=== PATIENT | male | born 1960 | race Caucasian/White ===

== ENCOUNTER 2016-07-28 07:25 | Emergency (ER) | payer BC, OTHER ==
[~2016-07-28] VITALS: Ht 165.1 cm; Wt 108.9 kg
[~2016-07-28 07:25] MED LIST: /ATOR40TA OR; BENI20TA11 PO; CLAR500T OR; IBUP400T PO; MULTIVIT PO; PRIL40CA OR; TRAM50TA2 OR; ULTRTA PO; VENTAER IN; VOLT1GEL EX; [UNRECOGNIZED DRUG - OTHER] PO
[2016-07-28] MEDS ORDERED: BENI5TAB PO (07:33)
[2016-07-28 09:24] LABS: BASO % 0.5 % (0.0-1.0); EOS # 0.1 K/mm3 (0.0-0.50); EOS % 2.1 % (0.0-3.0); LARGE UNSTAINED CELL # 0.2 K/mm3 (0.0-0.4); LARGE UNSTAINED CELL % 2.6 % (0.0-4.0); LYMPH # 0.9 K/mm3 (1.5-4.5); LYMPH % 13.7 % (24.0-44.0); MEAN CORPUSCULAR HEMOGLOBIN 31.8 pg (27.0-33.0); MEAN CORPUSCULAR HGB CONC 34.3 g/dl (32.0-36.5); MEAN CORPUSCULAR VOLUME 92.5 fl (80.0-96.0); MONO # 0.4 K/mm3 (0.0-0.8); MONO % 5.4 % (0.0-5.0); NEUTROPHILS % 75.6 % (36.0-66.0); PLATELET COUNT, AUTOMATED 206 k/mm3 (150-450); RED CELL DISTRIBUTION WIDTH 12.5 % (11.5-14.5); WHITE BLOOD COUNT 6.6 K/mm3 (4.0-10.0)
[2016-07-28] MEDS ORDERED: GASTROGRAFIN SOLUTION 30ML (Q9963) As Ordered ONE (09:42)
[2016-07-28 09:56] LABS: ALBUMIN 3.5 GM/DL (3.2-5.2); ALBUMIN/GLOBULIN RATIO 0.97 (1.00-1.93); ALKALINE PHOSPHATASE 56 U/L (45-117); ALT/SGPT 34 U/L (12-78); ANION GAP 6 MEQ/L (8-16); AST/SGOT 24 U/L (15-37); BILIRUBIN,DIRECT 0.2 MG/DL (0.0-0.2); BLOOD UREA NITROGEN 18 MG/DL (7-18); CARBON DIOXIDE LEVEL 34 MEQ/L (21-32); CHLORIDE LEVEL 99 MEQ/L (98-107); CREATININE FOR GFR 1.05 MG/DL (0.70-1.30); GLOMERULAR FILTRATION RATE > 60.0 (>56); GLUCOSE, FASTING 101 MG/DL (70-105); POTASSIUM SERUM 3.1 MEQ/L (3.5-5.1); SODIUM LEVEL 139 MEQ/L (136-145); TOTAL PROTEIN 7.1 GM/DL (6.4-8.2)
[2016-07-28] MEDS ORDERED: GASTROGRAFIN SOLUTION 30ML (Q9963) PO ONE (10:00)
[2016-07-28] MEDS ORDERED: ISOVUE-370 76% 100ML VIAL (Q9967) As Ordered ONE (11:11)
[2016-07-28] MEDS ORDERED: POTASSIUM CHLORIDE 10 MEQ SR TABLET PO ONE (11:15)
--- NOTE | 2016-07-28 11:56 | REP ---
CT ABDOMEN AND PELVIS WITH IV CONTRAST AND ORAL CONTRAST: TECHNIQUE: Axial contrast enhanced images from the lung bases to the pubic symphysis using 100 mL Isovue 370 intravenous contrast material with multiplanar reformations. Visualized lung bases demonstrate no infiltrate. Liver demonstrates a hypodensity in the left lobe which measures approximately 1 cm in diameter. This probably represents a cyst. Patient has had a prior cholecystectomy. The spleen, adrenals, pancreas, and kidneys are unremarkable. There is no abnormal aortic aneurysm with mild atherosclerotic calcifications noted. There is on adenopathy. There is on free air or free fluid. The appendix is normal. However, there is sigmoid diverticulitis present, with multiple innumerable sigmoid diverticula associated with thickening and surrounding streaky inflammatory change. Urinary bladder is mildly distended and grossly unremarkable. There are small bilateral inguinal hernias containing fat. IMPRESSION: Sigmoid diverticulitis. No evidence of free air, free fluid, or abscess. Small bilateral inguinal hernias containing fat. Signed by Jonnathan Garza MD 07/28/2016 12:35 P
[2016-07-28 12:53] VITALS: BP 143/83
[2016-07-28] MEDS ORDERED: FLAG500T PO (13:14)
[2016-07-28] MEDS ORDERED: CIPR500T89 PO (13:14)
[2016-07-28] MEDS ORDERED: CIPROFLOXACIN 500 MG TAB PO ONE (13:15)
[2016-07-28] MEDS ORDERED: metroNIDAZOLE (FLAGYL) 500 MG TAB PO ONE (13:15)
== END 2016-07-28 13:31 | disposition home or self-care (01) ==
LOC: M ED 08:07
DX: K57.32 Diverticulitis of large intestine without perforation or abscess without bleeding (principal); K40.20 Bilateral inguinal hernia, without obstruction or gangrene, not specified as recurrent; I10 Essential (primary) hypertension; E78.5 Hyperlipidemia, unspecified; K21.9 Gastro-esophageal reflux disease without esophagitis; Z87.891 Personal history of nicotine dependence
CPT/HCPCS: 36415; 74177; 80048; 80076; 83690; 85025; 99283; Q9963; Q9967

== ENCOUNTER 2016-12-05 09:14 | Outpatient (CLI) | payer BC, OTHER ==
[~2016-12-05] VITALS: Ht 167.6 cm; Wt 108.9 kg
[~2016-12-05 09:14] MED LIST changes: +BENI5TAB3 PO; +CIPR-249 PO; +FLAG500T PO; +MULT1TAB10 PO
[2016-12-05] MEDS ORDERED: NS 1,000 ML IV ONE (10:00)
[2016-12-05] MEDS ORDERED: LIDOCAINE 2% INJ 100 MG/5 ML SDV (FOR ANES.) As Ordered ONE (10:40)
[2016-12-05] MEDS ORDERED: PROPOFOL 200 MG/20 ML VIAL As Ordered ONE (10:40)
--- NOTE | 2016-12-05 10:41 | ROOR ---
Patient Name: Shamar Barney Procedure Date: 12/05/2016 10:29 AM Date of : 1960 Age: 56 Room: [facility] Gender: Male Note Status: Finalized Procedure: Upper GI endoscopy Indications: Epigastric abdominal pain Providers: Boubacar HARRIS MD Referring MD: ALBER LEYVA Requesting Provider: Medicines: Monitored Anesthesia Care Complications: No immediate complications. Procedure: Pre-Anesthesia Assessment: - The heart rate, respiratory rate, oxygen saturations, blood pressure, adequacy of pulmonary ventilation, and response to care were monitored throughout the procedure. The Endoscope was introduced through the mouth, and advanced to the second part of duodenum. The upper GI endoscopy was accomplished without difficulty. The patient tolerated the procedure well. Findings: The esophagus was normal. The stomach was normal. (large compliant stomach) The examined duodenum was normal. Impression: - Normal esophagus. - Normal stomach. - Normal examined duodenum. - No specimens collected. Recommendation: - Observe patient's clinical course. Boubacar Harris MD Boubacar HARRIS MD 12/05/2016 10:40:48 AM This report has been signed electronically. Number of Addenda: 0 Note Initiated On: 12/05/2016 10:29 AM Estimated Blood Loss: Estimated blood loss: none.
--- NOTE | 2016-12-05 10:57 | ROOR ---
Patient Name: Shamar Barney Procedure Date: 12/05/2016 10:30 AM Date of : 1960 Age: 56 Room: [facility] Gender: Male Note Status: Finalized Procedure: Colonoscopy Indications: Abnormal CT of the GI tract Providers: Boubacar HARRIS MD Referring MD: ALBER LEYVA Requesting Provider: Medicines: Monitored Anesthesia Care Complications: No immediate complications. Procedure: Pre-Anesthesia Assessment: - The heart rate, respiratory rate, oxygen saturations, blood pressure, adequacy of pulmonary ventilation, and response to care were monitored throughout the procedure. The Colonoscope was introduced through the anus and advanced to the terminal ileum, with identification of the appendiceal orifice and IC valve. The colonoscopy was performed without difficulty. The patient tolerated the procedure well. The quality of the bowel preparation was good. Findings: Hemorrhoids were found on perianal exam. (Exam: Complete, Prep: Good or Excellent.) A 4 mm polyp was found in the sigmoid colon. The polyp was sessile. The polyp was removed with a cold snare. Resection and retrieval were complete. Multiple small-mouthed diverticula were found in the sigmoid colon and descending colon. External and internal hemorrhoids were found during retroflexion. The hemorrhoids were moderate. Impression: - (Exam: Complete, Prep: Good or Excellent.) - Moderate external and internal hemorrhoids are seen on perianal exam. - One 4 mm polyp in the sigmoid colon, removed with a cold snare. Resected and retrieved. - Mild diverticulosis in the sigmoid colon and in the descending colon. Recommendation: - Repeat colonoscopy in 5 years for surveillance. Boubacar Harris MD Boubacar HARRIS MD 12/05/2016 10:57:16 AM This report has been signed electronically. Number of Addenda: 0 Note Initiated On: 12/05/2016 10:30 AM Estimated Blood Loss: Estimated blood loss: none.
[2016-12-05 11:25] VITALS: BP 146/89
== END 2016-12-05 11:34 | disposition home or self-care (01) ==
LOC: M OPP 09:14
PROVIDERS: ATTEND Internal Medicine Gastroenterology
DX: R93.5 Abnormal findings on diagnostic imaging of other abdominal regions, including retroperitoneum (principal); K63.5 Polyp of colon; K57.30 Diverticulosis of large intestine without perforation or abscess without bleeding; K64.4 Residual hemorrhoidal skin tags; K64.8 Other hemorrhoids; R10.13 Epigastric pain; K25.9 Gastric ulcer, unspecified as acute or chronic, without hemorrhage or perforation; I10 Essential (primary) hypertension; E78.5 Hyperlipidemia, unspecified; K57.32 Diverticulitis of large intestine without perforation or abscess without bleeding; R12 Heartburn; M19.90 Unspecified osteoarthritis, unspecified site; M54.2 Cervicalgia; R06.83 Snoring; G47.30 Sleep apnea, unspecified; Z87.891 Personal history of nicotine dependence; Z88.0 Allergy status to penicillin; Z79.899 Other long term (current) drug therapy

== ENCOUNTER → 2018-04-12 | Outpatient (CLI) | payer BC, OTHER ==
[~2018-04-12] MED LIST changes: +ACET1TAB55 PO; +CHLO25TA PO; +SULF1TAB93 PO
[2018-04-12 14:37] LABS: BLOOD UREA NITROGEN 18 MG/DL (7-18); CREATININE FOR GFR 1.07 MG/DL (0.70-1.30); GLOMERULAR FILTRATION RATE > 60.0 (>56); IRON (FE) 84 UG/DL (65-175); PERCENT SATURATION 27.4 % (19.7-50.0); TOTAL IRON BINDING CAPACITY 307 UG/DL (250-450)
[2018-04-12 14:56] LABS: HEPATITIS B SURFACE ANTIGEN NEGATIVE (NEGATIVE)
[2018-04-12 15:23] LABS: HEPATITIS C VIRUS ABY INDEX < 0.0 INDEX (<0.8)
[2018-04-12 15:24] LABS: HEPATITIS B CORE ANTIBODY IGM NEGATIVE (NEGATIVE)
[2018-04-12 15:26] LABS: HEPATITIS A ANTIBODY IGM NEGATIVE (NEGATIVE)
[2018-04-15 00:07] LABS: ANCA-ATYPICAL <1:20 titer (Neg:<1:20); ANTI-MITOCHONDRIAL ANTIBODY <20.0 Units (0.0-20.0); ANTINUCLEAR ANTIBODIES DIRECT Negative (Negative); CERULOPLASMIN 23.8 mg/dL (16.0-31.0); CYTOPLASMIC NEUTROP AB ANCA-C <1:20 titer (Neg:<1:20); PERINUCLEAR AB ANCA-P <1:20 titer (Neg:<1:20)
== END ==
LOC: M LAB 13:00
PROVIDERS: ATTEND Internal Medicine Gastroenterology
DX: K75.81 Nonalcoholic steatohepatitis (NASH) (principal); R93.3 Abnormal findings on diagnostic imaging of other parts of digestive tract

== ENCOUNTER → 2018-04-23 | Outpatient (CLI) | payer BC, OTHER ==
[~2018-04-23] MED LIST changes: +PROHANCE 279.3MG/ML 15ML VIAL (A9576) As Ordered ONE; +PROHANCE 279.3MG/ML 5ML VIAL (A9576) As Ordered ONE
--- NOTE | 2018-04-23 14:37 | REP ---
MRI ABDOMEN AND LIVER WITHOUT AND WITH IV GADOLINIUM: HISTORY: Hepatic cyst noted left lobe on March 15, 2018 ultrasound from [facility]. Common bile duct measures 12 mm post cholecystectomy. TECHNIQUE: Axial and coronal T1- and T2-weighted scans were obtained. Sequences include spin-echo, fast spin echo, gradient echo, in- and [id number], and dynamically acquired sequential post gadolinium enhanced images. The gadolinium enhancement dose is 20 mL of intravenous ProHance. MRI FINDINGS: There are three identifiable hepatic cysts. The cyst seen sonographically is noted in the central portion of the left lobe measuring 1.3 cm in greatest diameter by MRI. There is a peripheral subcapsular cyst 1.2 cm in diameter in the left lobe. There is a tiny 2 mm cyst inferiorly in the posterior segment of the right lobe. The two left lobe cysts are visible in retrospect on the CT study and are felt to be essentially unchanged. No other focal liver lesion is seen on precontrast T2-weighted scans. No abnormal gadolinium enhancement is seen with any of these lesions. No other focal liver lesion is seen on the other T1 or T2-weighted sequences. No pancreatic or splenic lesion is seen. There is an accessory splenule noted as previously visualized. The common bile duct is noted to be 12 mm in diameter as seen on sonography. This is in the upper range of normal post cholecystectomy. There is no evidence of choledocholithiasis. IMPRESSION: Small cysts in the liver. Post cholecystectomy. Borderline CBD 12 mm. This is unchanged from CT study July 28, 2016. Otherwise no significant finding. Electronically Signed by Nelson Gomez MD 04/23/2018 02:43 P
== END ==
LOC: M RAD 10:08
PROVIDERS: ATTEND Internal Medicine Gastroenterology
DX: R93.3 Abnormal findings on diagnostic imaging of other parts of digestive tract (principal); K76.89 Other specified diseases of liver; Z90.49 Acquired absence of other specified parts of digestive tract
CPT/HCPCS: 74183; A9576

== ENCOUNTER → 2020-03-08 | Outpatient (CLI) | payer BC, OTHER ==
[~2020-03-08] MED LIST changes: -/ATOR40TA OR; +LIPI1TAB2 OR; -PROHANCE 279.3MG/ML 15ML VIAL (A9576) As Ordered ONE; -PROHANCE 279.3MG/ML 5ML VIAL (A9576) As Ordered ONE
== END ==
LOC: M LABSMTC 13:30
PROVIDERS: ATTEND Orthopaedic Surgery Orthopaedic Surgery of the Spine
DX: Z20.822 Contact with and (suspected) exposure to COVID-19 (principal)

== ENCOUNTER → 2020-03-09 | Outpatient (CLI) | payer BC, OTHER ==
[2020-03-09 15:33] LABS: BASO % 0.5 % (0.0-1.0); EOS # 0.1 10^3/uL (0.0-0.5); EOS % 1.3 % (0.0-3.0); HEMATOCRIT 45.9 % (42.0-52.0); LYMPH # 1.4 10^3/uL (1.5-5.0); LYMPH % 17.2 % (24.0-44.0); MEAN CORPUSCULAR HEMOGLOBIN 30.5 pg (27.0-33.0); MEAN CORPUSCULAR HGB CONC 32.7 g/dl (32.0-36.5); MEAN CORPUSCULAR VOLUME 93.5 fl (80.0-96.0); MONO # 0.6 10^3/uL (0.0-0.8); MONO % 7.4 % (0.0-5.0); NEUTROPHILS % 73.2 % (36.0-66.0); PLATELET COUNT, AUTOMATED 250 10^3/uL (150-450); RED BLOOD COUNT 4.91 10^6/uL (4.30-6.10); WHITE BLOOD COUNT 8.2 10^3/uL (4.0-10.0)
[2020-03-09 16:15] LABS: ALBUMIN 4.5 GM/DL (3.2-5.2); ALT/SGPT 56 U/L (12-78); BILIRUBIN,TOTAL 1.6 MG/DL (0.2-1.0); BLOOD UREA NITROGEN 21 MG/DL (7-18); CARBON DIOXIDE LEVEL 28 MEQ/L (21-32); CHLORIDE LEVEL 104 MEQ/L (98-107); CREATININE FOR GFR 1.12 MG/DL (0.70-1.30); GLOMERULAR FILTRATION RATE > 60.0 (>49); GLUCOSE, FASTING 78 MG/DL (70-100); POTASSIUM SERUM 3.5 MEQ/L (3.5-5.1); SODIUM LEVEL 139 MEQ/L (136-145); TOTAL PROTEIN 7.4 GM/DL (6.4-8.2)
--- NOTE | 2020-03-11 13:01 | ECGEPIP ---
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
== END ==
LOC: M LAB 14:19
PROVIDERS: ATTEND Orthopaedic Surgery Orthopaedic Surgery of the Spine
DX: Z01.818 Encounter for other preprocedural examination (principal); M51.36 Other intervertebral disc degeneration, lumbar region; M48.062 Spinal stenosis, lumbar region with neurogenic claudication

== ENCOUNTER → 2020-11-10 | Outpatient (CLI) | payer BC, OTHER ==
[~2020-11-10] MED LIST changes: +BACTDSTA PO; -SULF1TAB93 PO
== END ==
LOC: M LABSMTC 10:52
PROVIDERS: ATTEND Otolaryngology
DX: J35.1 Hypertrophy of tonsils (principal)

== ENCOUNTER → 2020-12-21 | Outpatient (CLI) | payer BC, OTHER | LOC: M LABSMTC 10:45 | DX: Z20.828 Contact with and (suspected) exposure to other viral communicable diseases (principal); Z11.52 Encounter for screening for COVID-19 ==

== ENCOUNTER → 2021-01-03 | Outpatient (CLI) | payer BC, OTHER ==
[~2021-01-03] MED LIST changes: +ACET500P3 PO; +CENT1TAB PO; +IBUP-1114 PO; +OXYC-517 PO
--- NOTE | 2021-01-03 16:55 | RADONC.CN ---
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 He is seen today for consideration of definitive RT. Diagnosis/Treatment History Oncologic History Late 2019: Noted left throat discomfort and otalgia October 2020: Evaluated by Dr. 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 Melo recommending RT rather than TORS Interval History Shamar reports he has ongoing 3/10 otalgia and sore throat on the left. Takes tylenol which helps. He has no dysphagia at this time. Weight is stable. 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 He has not seen a dentist in a 'few years' last dentist stopped taking his insurance. No dental pain. Past Medical History: Diverticulitis GERD HPL HTN ABE Past Surgical History: Appendectomy Cholecystectomy Right inguinal hernia repair Family History: Father Hodgkin lyphoma Social History: 7.5 pack year former smoker quit 2001 Drinks 1 drink per week Allergies / Meds Allergies: Coded Allergies: MS - Penicillins (Verified Allergy, Intermediate, HIVES, 11/26/16) MS - Penicillins Cross Reactors (Verified Allergy, Intermediate, HIVES, 11/26/16) MS - Clarithromycin (Verified Adverse Reaction, Unknown, HEARTT RACES, 02/21/18) Home Meds Reported Medications Multivit-Min/FA/Lycopen/Lutein (Centrum Silver Tablet) 1 Each Tablet, 1 TAB PO DAILY for 30 Days, #30 TAB 01/03/21 Oxycodone HCl (Oxycodone HCl) 5 Mg Tablet, 2 TAB PO Q4HP PRN for pain MDD 2 Tablet(s) for 5 Days, #10 TAB 01/03/21 Ibuprofen (Ibuprofen) 400 Mg Tablet, 1 TAB PO Q6HP PRN for PAIN LEVEL 3-5 for 5 Days, #20 TAB 01/03/21 Acetaminophen (Tylenol Extra Strength) 500 Mg Powd.pack, 1000 MG PO PRN PRN for PAIN LEVEL 1-4 01/03/21 Chlorthalidone (Chlorthalidone) 25 Mg Tab, 1 TAB PO DAILY for 30 Days, #30 TAB 02/21/18 Multivitamins (Multivitamin Adults) 1 Tab Tab, 1 TAB PO DAILY, TAB 11/26/16 Olmesartan Medoxomil (Benicar) 5 Mg Tab, 10 MG PO DAILY, TAB 07/28/16 Atorvastatin Calcium (Lipitor) 40 Mg Tab, 40 MG OR DAILY 02/07/11 Omeprazole (Prilosec) 40 Mg Cap, 40 MG OR QAM 02/07/11 Discontinued Reported Medications Acetaminophen (Acetaminophen) 325 Mg Tab, 1 TAB PO DAILY for pain or fever for 30 Days, #30 TAB 02/21/18 Sulfamethoxazole/Trimethoprim (Sulfamethoxazole-Tmp Ds Tablet) 1 Tab Tab, 1 TAB PO BID for 10 Days, #20 TAB 02/21/18 Tramadol Hcl (Tramadol Hcl) 50 Mg Tab, 50 MG OR Q4HP 03/11/11 [chloralid] No Conflict Check, 25 MG PO DAILY 02/07/11 Review of Systems Constitutional: Denies: Fatigue, Weight Loss Eyes: Denies: Pain HEENT: Reports: Ear Pain, Sore Throat; Denies: Head Aches, Dysphagia Skin: Denies: Rash Pulmonary: Denies: Dyspnea Cardiovascular: Denies: Chest Pain Gastrointestinal: Denies: Abdominal Pain Musculoskeletal: Denies: Neck pain, Back pain Neurological: Denies: Weakness, Numbness Psych: Reports: Mood Normal Vital Signs Ht 65" Wt 247 lbs BMI 41 T 98.2 P 85 RR 16 BP 131/78 O2 98% Pain 3 Fatigue 0 General Exam: Alert, Cooperative, No Acute Distress Eye Exam: PERRLA, EOMI ENT EXAM: Other ENT ([place] dentition in good condition, no broken teeth, possible caries #31, #11. Tongue midline, no visible or palpable oral cavity lesions. In the left tonsillar fossa there is an asymmetric mass causing forward deviation of the uvula. On palpation there is a rubbery tender mass in the left tonsillar fossa, it extends palpably to the left BOT, it involves the soft palate, it does not cross midline. No palpable lesions in the right BOT or tonsillar fossa. ) Neck Exam: Supple, Other (Intact laryngeal crepitus, larynx elevates appropriately with swallowing. ); Negative: Thyromegaly, Lymphadenopathy Chest Exam: Clear to auscultation Heart Exam: Rate Normal Abdomen Exam: Soft Extremity Exam: Negative: Edema Skin Exam: Nl turgor and temperature Neuro Exam: Normal Gait, Normal Speech, Cranial Nerves 3-12 NL Psych Exam: Mental status NL Other Physical Findings Laryngoscopy: Shamar provided verbal consent to be scoped. Cetacaine was sprayed in the left nare for anesthesia. The scope was passed easily to the left nasopharynx, no lesions were appreciated. The scope passed down the posterior pharyngeal wall. The left posterior soft palate was posteriorly deviated and occupied by a pink and non-ulcerated mass, this mass continued down the lateral aspect of the palatoglossal arch to the left tongue base, there was no ulc eration of the left BOT mass. The right BOT was clear. The valleculae and epiglottis were clear. No pyriform sinus lesions, the larynx moves freely with phonation, no lesions. The scope was withdrawn and the patient tolerated the procedure well. Diagnostic and Laboratory Diagnostic Review Radiologic images, relevant labs and pathology reports were personally reviewed and discussed with Mr. Barney. Assessment and Plan Impression Mr. Barney is a 60 year old male with a history of left tonsil SCC [id number] p16+ stage I. He is seen today for consideration of definitive RT. Stage Left tonsil SCC p16+ [id number] stage I Performance Status ECOG 1 Plan We had an extensive discussion with Mr. Barney regarding the diagnosis at hand and available therapeutic options. On my exam the left tonsil lesion is bulky and involves the tonsillar fossa left lateral soft palate and left BOT. There is no physical evidence of intrinsic tongue muscle invasion, on palpation/scope the lesion was quite exophytic from the tongue-proper, the tongue does not deviate on exam. Given the p16+ nature of the tumor and absent signs of T4 disease, and lack of involved nodes on PET-CT, I recommend definitive RT alone for this. I will give 70 Gy in 35 fractions to the primary and 54 Gy to the BL elective necks. This will effect a great chance of cure and mitigate the risk of side effects of adding chemotherapy for uncertain benefit in this scenario. As he has not seen a dentist in some time I will send him to Dr. Lezama for clearance. We discussed the logistics of receiving radiation therapy in detail including the need for a 1-time planning session. This will occur after dental clearance is obtained. He is eating all foods without difficulty and has stable weight, thus I do not see an indication for a PEG tube. We discussed the myriad side effects of RT, pain, dysphagia, weight loss, xerostomia, dysgeusia, ORN, dental complications, fibrosis, and lymphedema. After discussing the risks, benefits and alternatives to radiation therapy, Mr. Barney was amenable to pursuing radiotherapy. All questions were answered to the patient's satisfaction. We instructed the patient that if there were any questions,concerns or changes in clinical status in the interim to contact us. Recommendations Definitive RT 70 Gy in 35 fractions with VMAT and daily CBCT Dental clearance No PEG tube Simulation pending dental clearance Billing Statement Total time of [47] minutes was spent preparing for the visit [3], obtaining HPI [6], examining the patient [8], reviewing diagnostic tests [6], discussing management options [15], coordinating care [2], and writing this note [7]. JOSUE GOODEN MD Jan 03, 2021 16:55
== END ==
LOC: M ONCR 14:57
PROVIDERS: ATTEND General Practice
DX: C10.9 Malignant neoplasm of oropharynx, unspecified (principal); Z88.0 Allergy status to penicillin; Z88.8 Allergy status to other drugs, medicaments and biological substances; Z79.891 Long term (current) use of opiate analgesic; Z79.899 Other long term (current) drug therapy
CPT/HCPCS: 31575; G0463

== ENCOUNTER → 2021-01-22 | Outpatient (RCR) | payer BC, OTHER ==
[~2021-01-22] MED LIST changes: +MAGICMW PO; +OXYC1SOL3 PO
== END ==
LOC: M ONCR 13:57
PROVIDERS: ATTEND General Practice
DX: C09.0 Malignant neoplasm of tonsillar fossa (principal)

== ENCOUNTER 2021-02-21 15:41 | Outpatient (RCR) | payer BC, OTHER ==
[~2021-02-21 15:41] MED LIST changes: -OXYC1SOL3 PO
== END 2021-02-22 ==
LOC: M ONCR 15:41
PROVIDERS: ATTEND General Practice
DX: C09.0 Malignant neoplasm of tonsillar fossa (principal); R43.9 Unspecified disturbances of smell and taste

== ENCOUNTER → 2021-03-25 | Outpatient (RCR) | payer BC, OTHER ==
[~2021-03-25] MED LIST changes: +OXYC1SOL3 PO
== END ==
LOC: M ONCR 02-25 15:47
PROVIDERS: ATTEND General Practice
DX: C09.0 Malignant neoplasm of tonsillar fossa (principal)

== ENCOUNTER 2021-04-01 15:42 | Outpatient (RCR) | payer BC, OTHER | END 2021-04-22 | LOC: M ONCR 15:42 | PROVIDERS: ATTEND General Practice | DX: C09.0 Malignant neoplasm of tonsillar fossa (principal) ==

== ENCOUNTER → 2021-04-16 | Outpatient (CLI) | payer BC, OTHER | LOC: M ONCR 15:27 | PROVIDERS: ATTEND Radiology Radiation Oncology | DX: C09.0 Malignant neoplasm of tonsillar fossa (principal); Z92.3 Personal history of irradiation ==

== ENCOUNTER → 2021-07-15 | Outpatient (CLI) | payer BC, OTHER | LOC: M PLARAD 08:51 | PROVIDERS: ATTEND General Practice | DX: C09.0 Malignant neoplasm of tonsillar fossa (principal) | CPT/HCPCS: 78815; A9552 ==

== ENCOUNTER → 2021-07-17 | Outpatient (CLI) | payer BC, OTHER | LOC: M ONCR 15:22 | PROVIDERS: ATTEND General Practice | DX: C09.0 Malignant neoplasm of tonsillar fossa (principal); Z79.899 Other long term (current) drug therapy; Z87.891 Personal history of nicotine dependence; Z88.0 Allergy status to penicillin; Z88.1 Allergy status to other antibiotic agents; Z92.3 Personal history of irradiation | CPT/HCPCS: 31575; G0463 ==

== ENCOUNTER → 2021-08-15 | Outpatient (REF) | payer OTHER | LOC: M SFHCDERM 17:25 | PROVIDERS: ATTEND Nurse Practitioner Family | DX: L85.1 Acquired keratosis [keratoderma] palmaris et plantaris (principal) ==

== ENCOUNTER → 2021-10-22 | Outpatient (REF) | payer BC, OTHER | LOC: M SFHCDERM 14:07 | PROVIDERS: ATTEND Nurse Practitioner Family | DX: C44.319 Basal cell carcinoma of skin of other parts of face (principal) ==

== ENCOUNTER → 2021-10-25 | Outpatient (CLI) | payer BC, OTHER ==
[~2021-10-25] MED LIST changes: -BENI5TAB3 PO; +OLME5TAB27 PO
[2021-10-25 13:05] LABS: FREE T4 0.94 NG/DL (0.76-1.46); THYROID STIMULATING HORMONE 2.76 uIU/ML (0.358-3.740)
== END ==
LOC: M ONCR 08:52
PROVIDERS: ATTEND General Practice
DX: Z08 Encounter for follow-up examination after completed treatment for malignant neoplasm (principal); C09.0 Malignant neoplasm of tonsillar fossa; J38.01 Paralysis of vocal cords and larynx, unilateral; Z79.899 Other long term (current) drug therapy; Z87.891 Personal history of nicotine dependence; Z88.0 Allergy status to penicillin; Z88.1 Allergy status to other antibiotic agents; Z92.3 Personal history of irradiation
CPT/HCPCS: 31575; 84439; 84443; G0463

== ENCOUNTER → 2022-01-07 | Outpatient (CLI) | payer BC, OTHER ==
[~2022-01-07] MED LIST changes: +ATOR40TA75 PO; +CHLO125TA PO; +OLME5TAB24 PO; +OMEP40CA5 PO
== END ==
LOC: M LABSMTC 09:40
PROVIDERS: ATTEND Anesthesiology
DX: Z01.812 Encounter for preprocedural laboratory examination (principal); Z11.52 Encounter for screening for COVID-19

== ENCOUNTER → 2022-01-28 | Outpatient (CLI) | payer BC, OTHER | LOC: M ONCR 10:06 | PROVIDERS: ATTEND General Practice | DX: Z08 Encounter for follow-up examination after completed treatment for malignant neoplasm (principal); Z85.818 Personal history of malignant neoplasm of other sites of lip, oral cavity, and pharynx; Z79.899 Other long term (current) drug therapy; Z87.891 Personal history of nicotine dependence; Z88.0 Allergy status to penicillin; Z92.3 Personal history of irradiation | CPT/HCPCS: 31575; G0463 ==

== ENCOUNTER → 2022-03-03 | Outpatient (CLI) | payer BC, OTHER | LOC: M LABSMTC 11:44 | PROVIDERS: ATTEND Anesthesiology | DX: Z01.812 Encounter for preprocedural laboratory examination (principal); Z20.822 Contact with and (suspected) exposure to COVID-19 ==

== ENCOUNTER 2022-03-07 07:11 | Day surgery (SDC) | payer BC, OTHER ==
[~2022-03-07] VITALS: Ht 167.6 cm; Wt 108.4 kg
[~2022-03-07 07:11] MED LIST changes: +NS 1,000 ML IV ONE
[2022-03-07] MEDS ORDERED: propofoL 200 MG/20 ML VIAL As Ordered ONE (08:58)
[2022-03-07 09:06] VITALS: BP 123/59
== END 2022-03-07 09:25 | disposition home or self-care (01) ==
LOC: M OPP 07:11
PROVIDERS: ATTEND Internal Medicine Gastroenterology
DX: Z12.11 Encounter for screening for malignant neoplasm of colon (principal); Z86.010 Personal history of colon polyps; D12.4 Benign neoplasm of descending colon; K64.8 Other hemorrhoids; K64.4 Residual hemorrhoidal skin tags; K57.30 Diverticulosis of large intestine without perforation or abscess without bleeding; Z79.1 Long term (current) use of non-steroidal anti-inflammatories (NSAID); Z79.02 Long term (current) use of antithrombotics/antiplatelets; Z79.899 Other long term (current) drug therapy; Z88.0 Allergy status to penicillin; I10 Essential (primary) hypertension; G47.33 Obstructive sleep apnea (adult) (pediatric); Z87.891 Personal history of nicotine dependence; Z92.3 Personal history of irradiation

== ENCOUNTER → 2022-04-06 | Outpatient (CLI) | payer BC, OTHER ==
[~2022-04-06] MED LIST changes: -NS 1,000 ML IV ONE
== END ==
LOC: M LABSMTC 10:09
PROVIDERS: ATTEND Otolaryngology
DX: Z20.822 Contact with and (suspected) exposure to COVID-19 (principal)

== ENCOUNTER → 2022-04-29 | Outpatient (CLI) | payer BC, OTHER | LOC: M ONCR 10:14 | PROVIDERS: ATTEND General Practice | DX: C09.0 Malignant neoplasm of tonsillar fossa (principal); Z87.891 Personal history of nicotine dependence; Z92.3 Personal history of irradiation; Z88.0 Allergy status to penicillin; Z79.1 Long term (current) use of non-steroidal anti-inflammatories (NSAID); Z79.899 Other long term (current) drug therapy ==

== ENCOUNTER → 2022-05-02 | Outpatient (CLI) | payer BC, OTHER ==
[~2022-05-02] MED LIST changes: +ISOVUE-370 76% 100ML VIAL As Ordered ONE
== END ==
LOC: M RAD 09:05
PROVIDERS: ATTEND Otolaryngology Plastic Surgery within the Head & Neck
DX: C76.0 Malignant neoplasm of head, face and neck (principal)

== ENCOUNTER → 2022-05-14 | Outpatient (CLI) | payer BC, OTHER ==
[~2022-05-14] MED LIST changes: -ISOVUE-370 76% 100ML VIAL As Ordered ONE
[2022-05-14 16:51] LABS: BASO % 0.7 % (0.0-1.0); EOS # 0.1 10^3/uL (0.0-0.5); EOS % 2.3 % (0.0-3.0); HEMATOCRIT 44.6 % (42.0-52.0); HEMOGLOBIN 14.2 g/dl (13.5-17.5); LYMPH # 0.6 10^3/uL (1.5-5.0); LYMPH % 9.3 % (24.0-44.0); MEAN CORPUSCULAR HEMOGLOBIN 31.1 pg (27.0-33.0); MEAN CORPUSCULAR HGB CONC 31.8 g/dl (32.0-36.5); MEAN CORPUSCULAR VOLUME 97.8 fl (80.0-96.0); MONO # 0.6 10^3/uL (0.0-0.8); MONO % 10.3 % (2.0-8.0); NEUTROPHILS # 4.7 10^3/uL (1.5-8.5); NEUTROPHILS % 77.1 % (36.0-66.0); PLATELET COUNT, AUTOMATED 220 10^3/uL (150-450); RED BLOOD COUNT 4.56 10^6/uL (4.30-6.10); WHITE BLOOD COUNT 6.1 10^3/uL (4.0-10.0)
[2022-05-14 17:19] LABS: ALBUMIN 4.1 G/DL (3.2-5.2); ALKALINE PHOSPHATASE 56 U/L (46-116); ALT/SGPT 45 U/L (7.0-40); AST/SGOT 24 U/L (<34); BILIRUBIN,TOTAL 1.2 MG/DL (0.3-1.2); BLOOD UREA NITROGEN 20 MG/DL (9-23); CALCIUM LEVEL 8.9 MG/DL (8.3-10.6); CARBON DIOXIDE LEVEL 32 MMOL/L (20-31); CHLORIDE LEVEL 103 MMOL/L (98-107); CHOLESTEROL LEVEL 131 MG/DL (<200); CHOLESTEROL RISK RATIO 2.96 (<5); GLOMERULAR FILTRATION RATE > 60.0 (>49); GLUCOSE, FASTING 92 MG/DL (74-106); HDL CHOLESTEROL 44.2 MG/DL (>40); LDL CHOLESTEROL 70.4 MG/DL (<100); NON-HDL-C 86.8 MG/DL; POTASSIUM SERUM 3.6 MMOL/L (3.5-5.1); SODIUM LEVEL 140 MMOL/L (136-145); TOTAL PROTEIN 6.7 G/DL (5.7-8.2); TRIGLYCERIDES LEVEL 82 MG/DL (<150)
== END ==
LOC: M WUC 11:15
PROVIDERS: ATTEND Physician Assistant
DX: E78.5 Hyperlipidemia, unspecified (principal); I10 Essential (primary) hypertension

== ENCOUNTER → 2022-11-10 | Outpatient (REF) | payer BC, OTHER | LOC: M SFHCDERM 16:06 | PROVIDERS: ATTEND Physician Assistant | DX: C44.310 Basal cell carcinoma of skin of unspecified parts of face (principal) ==

== ENCOUNTER → 2023-06-26 | Outpatient (CLI) | payer BC, OTHER ==
[2023-06-26 12:06] LABS: HEMATOCRIT 42.3 % (42.0-52.0); MEAN CORPUSCULAR HEMOGLOBIN 31.5 pg (27.0-33.0); MEAN CORPUSCULAR HGB CONC 33.1 g/dl (32.0-36.5); MEAN CORPUSCULAR VOLUME 95.3 fl (80.0-96.0); PLATELET COUNT, AUTOMATED 251 10^3/uL (150-450); RED BLOOD COUNT 4.44 10^6/uL (4.30-6.10)
[2023-06-26 12:32] LABS: ALBUMIN 4.1 G/DL (3.2-5.2); ALKALINE PHOSPHATASE 66 U/L (46-116); ALT/SGPT 49 U/L (7.0-40); AST/SGOT 25 U/L (<34); BILIRUBIN,TOTAL 1.3 MG/DL (0.3-1.2); BLOOD UREA NITROGEN 20 MG/DL (9-23); CALCIUM LEVEL 9.3 MG/DL (8.3-10.6); CARBON DIOXIDE LEVEL 32 MMOL/L (20-31); CHLORIDE LEVEL 101 MMOL/L (98-107); CHOLESTEROL LEVEL 110 MG/DL (<200); CHOLESTEROL RISK RATIO 3.67 (<5); GLOMERULAR FILTRATION RATE > 60.0 (>49); GLUCOSE, FASTING 107 MG/DL (74-106); HDL CHOLESTEROL 29.9 MG/DL (>40); LDL CHOLESTEROL 61.3 MG/DL (<100); NON-HDL-C 80.1 MG/DL; POTASSIUM SERUM 3.7 MMOL/L (3.5-5.1); SODIUM LEVEL 139 MMOL/L (136-145); TOTAL PROTEIN 6.7 G/DL (5.7-8.2); TRIGLYCERIDES LEVEL 94 MG/DL (<150)
[2023-06-26 12:34] LABS: THYROID STIMULATING HORMONE 3.221 uIU/ML (0.55-4.78)
[2023-06-29 15:38] LABS: WHITE BLOOD COUNT 6.3 10^3/uL (4.0-10.0)
== END ==
LOC: M WUC 09:30
PROVIDERS: ATTEND Physician Assistant
DX: I10 Essential (primary) hypertension (principal); E78.5 Hyperlipidemia, unspecified

== ENCOUNTER → 2023-07-24 | Outpatient (CLI) | payer BC | LOC: M RAD 13:23 | PROVIDERS: ATTEND General Practice | DX: C09.0 Malignant neoplasm of tonsillar fossa (principal) ==